=== PATIENT | male | born 1995 | race Caucasian/White ===

== ENCOUNTER 2021-08-01 15:48 | Emergency (ER) | payer SELFPAY ==
--- NOTE | 2021-08-01 16:24 | ECG_ITS ---
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 Measurements Intervals [place] Rate: 79 P: 55 [place]: 120 QRS: 79 QRSD: 92 T: 71 QT: 335 QTc: 384 Interpretive Statements SINUS RHYTHM No previous ECG available for comparison Electronically Signed On 08-01-2021 20:57:46 CONSTRUCTION ADMINISTRATIVE ASSISTANT by Vin Mi M.D. [id number]
[2021-08-01 17:21] VITALS: BP 133/84; PULSE 93; RESP 16; TEMP 36.4; O2SAT 98; BMI 30.2
[2021-08-01 18:23] LABS: Basophils % 0.3 %; Eosinophils % 0.2 %; Hematocrit 44.8 % (42.0-52.0); Hemoglobin 15.1 g/dL (11.7-16.6); Lymphocytes # 1.5 10^3/uL (0.8-4.8); Lymphocytes % 9.6 %; Mean Corpuscular HGB Conc 33.7 g/dL (30.0-36.0); Mean Corpuscular Hemoglobin 31.7 pg (28.0-34.0); Mean Corpuscular Volume 93.9 fl (80-94); Mean Platelet Volume 9.2 fL (7.4-10.4); Monocytes # 0.7 10^3/uL (0.2-0.9); Monocytes % 4.3 %; Neutrophils # 13.15 10^3/uL (1.8-7.7); Neutrophils % 85.1 %; Nucleated Red Blood Cells % 0 %; Platelet Count 359 10^3/cmm (130-400); Red Blood Count 4.77 10^6/uL (4.1-5.3); White Blood Count 15.5 10^3/uL (4.0-10.0)
[2021-08-01 18:46] LABS: Anion Gap 15.5 (5-19); Blood Urea Nitrogen 11 mg/dL (6-20); Calcium 9.4 mg/dL (8.5-10.5); Carbon Dioxide 26 mmol/L (22-29); Chloride 101 mmol/L (98-107); Glomerular Filtration Rate 162.9 mL/min (90-130); Glucose 94 mg/dL (65-115); Osmolality Calculated 285 mOsm/kg (285-295); Potassium 4.5 mmol/L (3.5-5.1); Sodium 138 mmol/L (136-145)
--- NOTE | 2021-08-01 19:19 | ED_ITS ---
HPI - General Adult General: Chief complaint: General Medical Stated complaint: HIGH BLOOD PRESSURE Time Seen by Provider: 08/01/21 19:02 History of Present Illness: HPI narrative: Patient is a 25-year-old male comes to the ED with possible panic attack. Just prior to arrival patient says he was driving and started feeling some palpitations, anxiety, diaphoresis and felt little dizzy as well. He was also feeling short of breath as well. He also reports having a feeling of pending doom during episode. Says he has had these types of panic attacks in the past but it has been a while. Episode lasted for about an hour. He is not on any medication currently to treat anxiety. He does not have a PCP here in [place] and would like to be referred to a primary care doctor to get established. Symptoms resolved while here in the waiting room. He says currently he feels just really tired and wants to go home and rest. Denies any chest pain. Associated symptoms: Deny chest pain, dyspnea, headache(s), nausea, rash, palpitations or vomiting Review of Systems Const: Denies: fever(s), chills or fatigue Eyes: Denies: change in vision or eye discomfort ENMT: Denies: throat pain, odynophagia, nasal discharge or nasal congestion Card: Denies: chest pain, palpitations, edema, swelling of feet/ankles, dyspnea on exertion or orthopnea Resp: Denies: dyspnea, productive cough or non-productive cough GI: Denies: abdominal pain, nausea, vomiting, diarrhea, constipation or hematochezia : Denies: flank pain, difficulty urinating, dysuria or hematuria Musc: Denies: neck pain, back pain or extremity swelling Skin/Breast: Denies: rash or new lesions Neuro: Denies: headache(s), numbness in extremities or weakness in extremities Psych: Reports: anxiety and panic attacks Physical Exam Const: COMMON NORMALS: no acute distress, patient oriented x3, healthy appearing and alert GENERAL APPEARANCE: cooperative and comfortable HENMT: COMMON NORMALS: normocephalic HEAD & SCALP: normocephalic MOUTH: Normal oral and palatal mucosa present THROAT: posterior oropharynx normal and uvula midline Neck/C-Spine: COMMON NORMALS: supple GENERAL: Yes normal visual inspection Resp: COMMON NORMALS: normal respiratory effort, No retractions, No use of accessory muscles and clear to auscultation bilaterally AUSCULTATION: clear to auscultation bilaterally Cardio: COMMON NORMALS: regular rate, regular rhythm, S1 normal heart sound present, S2 normal heart sound present, No gallops present (Cardio), No clicks present (Cardio), No murmurs present (Cardio) and Peripheral pulses 2+ throughout RATE: regular rate RHYTHM: regular rhythm HEART SOUNDS: S1 normal heart sound present and S2 normal heart sound present PERIPHERAL PULSES: Peripheral pulses 2+ throughout GI: COMMON NORMALS: Normal to inspection, nondistended, normoactive bowel sounds present, Soft to palpation, non-tender and no masses PALPATION: Yes Soft to palpation : COMMON NORMALS: Yes no CVA tenderness BLADDER/KIDNEY EXAM: Yes no CVA tenderness Back/Pelvis: COMMON NORMALS: no CVA tenderness Extremity: COMMON NORMALS: normal to inspection Neuro: COMMON NORMALS: patient oriented x3 and moves all extremities SENSORIUM/ORIENTATION: Yes alert Skin: GENERAL SKIN EXAM: dry skin Course Vital Signs: Vital signs: Vital Signs Temperature 98.2 F 08/01/21 20:17 Pulse Rate 67 08/01/21 20:17 Respiratory Rate 15 08/01/21 20:17 Blood Pressure 118/67 08/01/21 20:17 Pulse Oximetry 98 08/01/21 20:17 MDM - General Adult MDM Narrative: Medical decision making narrative: Patient is a 25-year-old male comes to the ED after an episode of a panic attack. He was having shortness of breath, palpitations, diaphoresis and feeling of impending doom. Symptoms resolved while here in the ED waiting room. Patient says he has a history of past similar panic attacks and anxiety. He does not currently take anything for anxiety. Vital stable. Exam of patient benign. EKG shows sinus rhythm, 79 beats minute and no other acute findings. Labs unremarkable. Patient was given a dose of Vistaril while here in the ED to help with symptoms. He also wanted a referral to get set up with a primary care doctor so I placed an order with case management for patient to get established with a PCP here locally. Patient diagnosed with panic attack and discharged home with a prescription for Vistaril as needed for any acute anxiety or panic attacks. Return to ED precautions given. Patient was told continuous pillowcase cutter will contact him the next several days set up an appointment with PCP. Lab Data: Attestation: I reviewed the patient's lab results. Labs: Lab Results 08/01/21 08/01/21 17:56 17:56 WBC 15.5 10^3/uL H 10 ^3/uL (4.0-10.0) RBC 4.77 10^6/uL 10^6 /uL (4.1-5.3) Hgb 15.1 g/dL g/dL (11.7-16.6) Hct 44.8 % % (42.0-52.0) MCV 93.9 fl fl (80-94) MCH 31.7 pg pg (28.0-34.0) MCHC 33.7 g/dL g/dL (30.0-36.0) RDW 12.0 % L % (12.1-15.1) Plt Count 359 10^3/cmm 10^3 /cmm (130-400) MPV 9.2 fL fL (7.4-10.4) Neut % (Auto) 85.1 % % Lymph % (Auto) 9.6 % % [place] % (Auto) 4.3 % % Eos % (Auto) 0.2 % % Baso % (Auto) 0.3 % % Neut # (Auto) 13.15 10^3/uL H 1 0^3/uL (1.8-7.7) Lymph # (Auto) 1.5 10^3/uL 10^3/ uL (0.8-4.8) [place] # (Auto) 0.7 10^3/uL 10^3/ uL (0.2-0.9) Eos # (Auto) 0.0 10^3/uL 10^3/ uL (0.0-0.8) Baso # (Auto) 0.0 10^3/uL 10^3/ uL (0.0-0.1) Nucleated RBC % (a uto) 0 % % Nucleated RBCs # 0.0 /100WBC /100W BC Sodium 138 mmol/L mmol/L (136-145) Potassium 4.5 mmol/L mmol/L (3.5-5.1) Chloride 101 mmol/L mmol/L (98-107) Carbon Dioxide 26 mmol/L mmol/L (22-29) Anion Gap 15.5 (5-19) BUN 11 mg/dL mg/dL (6-20) Creatinine 0.6 mg/dL L mg/dL (0.7-1.2) GFR Calculation 162.9 mL/min H mL /min (90-130) Glucose 94 mg/dL mg/dL (65-115) Calculated Osmolal ity 285 mOsm/kg mOsm/ kg (285-295) Calcium 9.4 mg/dL mg/dL (8.5-10.5) EKG Data^: EKG 1: Attestation: I personally reviewed and interpreted this EKG as follows: EKG interpretation date: 08/01/21 Computer generated interpretation: [employer] [place] [address] [id number] ReportDraft Patient: Julian Eid #: [id number]: 1995Acct#:[id number]/Sex: 25 / MADM Date: 08/01/21Loc: ERRoom/Bed:Attending Dr: Ordering Provider/Ordering MD: Rolly Yo MD Date of Service: 08/01/21 Procedure(s): ECG 12 lead EKG Accession Number(s): [id number] Report Number: [id number] [facility] Test Date: 2021-08-01 Pat Name: Julian Eid Department: Room: 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1995 Requested By: Rolly Yo Order Number: [id number] Reading MD: Measurements Intervals [place] Rate: 79 P: 55 [place]: 120 QRS: 79 QRSD: 92 T: 71 QT: 335 QTc: 384 Interpretive Statements SINUS RHYTHM No previous ECG available for comparison [id number] [id number] Dictated By:INTERFACE,USERSigned By:Signed Date/Time:DD/ 28 Discharge Plan Discharge Patient Disposition: Home Clinical Impression: Panic attack Condition: Stable Prescriptions: New Vistaril 50 mg capsule 50 mg PO TID PRN (Reason: acute anxiety) Qty: 30 RF: 0 Discharge Orders: Discharge ED (Routine); Ordered 08/01/21 Ordered By: Derrek Sofia Discharge Diet: Regular Discharge Activity: Resume usual activity Patient Instructions: Anxiety (ED), Panic Attack (ED) Activity Restrictions/Additional Instructions: Follow-up with medical provider as directed. Case management should be con tacting you in the next several days set up an appointment with a primary care physician to get established with. Take medications as prescribed. Return to the ER or your medical provider if condition worsens. Please read and understand discharge instructions. Thank you for choosing [facility] for your healthcare needs today. Please realize this is an emergency room and that we are providing you with a medical screening exam and this may not be complete and all inclusive of all the testing and or work up that you may need to determine your ailment or severity of your illness. It is very important that you follow up as instructed or that you return to the Emergency Department should you have concerns or if your condition changes or worsens in any way. 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
[2021-08-01] MEDS: hyDROXYzine 25 mg Capsule 50 MG PO (19:31)
[2021-08-01 20:17] VITALS: BP 118/67; PULSE 67; RESP 15; TEMP 36.8; O2SAT 98
--- NOTE | 2021-08-02 12:46 | DCPLANNER ---
retirement manager had message to speak with patient about getting established with a primary care physician. retirement manager called phone number [phone], unable to speak with patient at this time. A voicemail was left for patient to return onsite case manager phone call.
== END 2021-08-01 20:20 | disposition home or self-care (01) ==
PROVIDERS: Emergency Medicine; Emergency Provider Physician Assistant
DX: F41.0 Panic disorder [episodic paroxysmal anxiety] (principal)
CPT/HCPCS: 80048; 85025; 93005; 99283

== ENCOUNTER → 2022-12-12 15:29 | Outpatient (BNVA) | payer SELFPAY | PROVIDERS: Visit Provider Registered Nurse Neonatal Intensive Care | DX: R50.9 Fever, unspecified (principal); B34.9 Viral infection, unspecified | CPT/HCPCS: 87426 ==